=== PATIENT | female | born 1955 | race Caucasian/White ===

== ENCOUNTER 2017-04-27 15:22 | Outpatient (CLI) | payer MEDICAID ==
[2017-04-27 17:52] LABS: BASOPHILS % (AUTO) 0.4 %; EOSINOPHILS % (AUTO) 1.2 %; HCT - HEMATOCRIT 40.5 % (37.0-47.0); HGB - HEMOGLOBIN 13.5 g/dL (12.0-16.0); LYMPHOCYTES % (AUTO) 55.2 %; MEAN CORPUSCULAR HEMOGLOBIN 28.2 pg (27.0-31.0); MEAN CORPUSCULAR HGB CONC 33.4 g/dL (32.0-36.0); MEAN CORPUSCULAR VOLUME 84.3 fL (81.0-99.0); MEAN PLATELET VOLUME 6.6 fL (7.9-10.8); MONOCYTES % (AUTO) 6.8 %; NEUTROPHILS % (AUTO) 36.4 %; RED BLOOD COUNT 4.81 10^6/uL (4.20-5.40); RED CELL DISTRIBUTION WIDTH 13.4 % (12.0-15.0); UNCORRECTED WHITE BLOOD COUNT 7.2 x10^3/uL; WHITE BLOOD COUNT 7.2 x10^3/uL (4.8-10.8)
[2017-04-27 18:58] LABS: BAND NEUTROPHILS % (MANUAL) 0 %
[2017-04-27 19:01] LABS: BASOPHILS % (MANUAL) 2 %; EOSINOPHILS % (MANUAL) 2 %; LYMPHOCYTES % (MANUAL) 38 %; NEUTROPHILS % (MANUAL) 36 %; PLATELET ESTIMATE, MANUAL NORMAL (130-450,000) (NORMAL); PLATELET MORPHOLOGY NORMAL APPEARANCE (NORMAL); TOTAL CELLS COUNTED 100
[2017-04-27 19:02] LABS: NP AUTO DIFFERENTIAL? YES; NP MAN DIFFERENTIAL? NO
[2017-04-27 19:07] LABS: ALBUMIN/GLOBULIN RATIO 1.3 (1.0-2.2); BILIRUBIN,TOTAL 0.4 mg/dL (0.2-1.0); CALCIUM 9.2 mg/dL (8.5-10.3); POTASSIUM 3.7 mmol/L (3.5-5.0); TOTAL PROTEIN 7.4 g/dL (6.7-8.2)
== END 2017-04-27 15:23 | disposition home or self-care (01) ==
LOC: LAB.F 15:22
PROVIDERS: ATTEND Physician Assistant Medical
DX: Z51.81 Encounter for therapeutic drug level monitoring (principal); Z79.899 Other long term (current) drug therapy
CPT/HCPCS: 36415; 80053; 85025

== ENCOUNTER 2018-04-23 11:31 | Emergency (ER) | payer MEDICARE, MEDICAID ==
[2018-04-23] MEDS ORDERED: KETAMINE 500 MG/10 ML VIAL ONE (12:25)
[2018-04-23 13:41] LABS: BASOPHILS % (AUTO) 0.2 %; EOSINOPHILS % (AUTO) 1.7 %; HGB - HEMOGLOBIN 12.5 g/dL (12.0-16.0); LYMPHOCYTES % (AUTO) 55.5 %; MEAN CORPUSCULAR HEMOGLOBIN 29.7 pg (27.0-31.0); MEAN CORPUSCULAR HGB CONC 34.6 g/dL (32.0-36.0); MEAN CORPUSCULAR VOLUME 85.7 fL (81.0-99.0); MONOCYTES % (AUTO) 7.6 %; PLT - PLATELET COUNT 350 10^3/uL (130-450); RED CELL DISTRIBUTION WIDTH 14.4 % (12.0-15.0); WHITE BLOOD COUNT 5.5 x10^3/uL (4.8-10.8)
[2018-04-23 13:43] LABS: ABNORMAL LYMPHS % (MANUAL) 0 %; BAND NEUTROPHILS % (MANUAL) 0 %
[2018-04-23 13:53] LABS: ALBUMIN 3.9 g/dL (3.2-5.5); ALBUMIN/GLOBULIN RATIO 1.2 (1.0-2.2); ALKALINE PHOSPHATASE 79 IU/L (42-121); ALT ALANINE AMINOTRANSFERASE 29 IU/L (10-60); AST ASPARTATE AMINOTRANSFERASE 31 IU/L (10-42); BILIRUBIN,TOTAL 0.3 mg/dL (0.2-1.0); BUN - BLOOD UREA NITROGEN 12 mg/dL (6-20); CALCIUM 9.1 mg/dL (8.5-10.3); CARBON DIOXIDE - CO2 28 mmol/L (21-32); CHLORIDE 99 mmol/L (101-111); CREATININE 0.9 mg/dL (0.4-1.0); GFR - MDRD 64 (>89); GLUCOSE 91 mg/dL (70-100); LIPASE 43 U/L (22-51); SALICYLATE < 6.0 mg/dL; SODIUM 136 mmol/L (135-145); TOTAL PROTEIN 7.2 g/dL (6.7-8.2)
[2018-04-23 14:03] LABS: BASOPHILS # (MANUAL) 0.1 10^3/uL (0-0.1); BASOPHILS % (MANUAL) 1 %; EOSINOPHILS # (MANUAL) 0.2 10^3/uL (0-0.7); LYMPHOCYTES # (MANUAL) 3.5 10^3/uL (1.5-3.5); LYMPHOCYTES % (MANUAL) 50 %; MONOCYTES # (MANUAL) 0.3 10^3/uL (0.0-1.0); MYELOCYTES % (MANUAL) 1 %; NEUTROPHILS # (MANUAL) 1.5 10^3/uL (1.5-6.6); NEUTROPHILS % (MANUAL) 27 %
[2018-04-23 14:04] LABS: DIFFERENTIAL COMMENT MANUAL DIFFERENTIAL
[2018-04-23 14:13] LABS: ACETAMINOPHEN < 10 ug/mL (10-30)
[2018-04-23 15:42] LABS: MUDS CUTOFF CONCENTRATIONS CUTOFF CONC BELOW:
[2018-04-23 15:46] LABS: BILIRUBIN,URINE NEGATIVE (NEGATIVE); GLUCOSE, URINE (UA) NEGATIVE (NEGATIVE); KETONES,URINE (UA) NEGATIVE (NEGATIVE); LEUKOCYTE ESTERASE, URINE NEGATIVE (NEGATIVE); NITRITE,URINE NEGATIVE (NEGATIVE); OCCULT BLOOD,URINE TRACE-LYSE (NEGATIVE); PROTEIN,URINE NEGATIVE (NEGATIVE); UROBILINOGEN,URINE 0.2 (NORMAL) E.U./dL (NORMAL)
[2018-04-23 16:03] LABS: AMPHETAMINE SCREEN,URINE NEGATIVE (NEGATIVE); BENZODIAZEPINES SCREEN, URINE NEGATIVE (NEGATIVE); CLARITY,URINE CLEAR (CLEAR); COCAINE SCREEN URINE NEGATIVE (NEGATIVE); METHADONE SCREEN, URINE NEGATIVE (NEGATIVE); METHAMPHETAMINES SCREEN, URINE NEGATIVE (NEGATIVE); OPIATE SCREEN, URINE NEGATIVE (NEGATIVE); OXYCODONE SCREEN, URINE POSITIVE (NEGATIVE); PROPOXYPHENE SCREEN, URINE NEGATIVE (NEGATIVE); TRICYCLIC ANTIDEPRESSANT,URINE NEGATIVE (NEGATIVE)
--- NOTE | 2018-04-23 16:07 | ED Physician Documentation ---
History of Present Illness - Stated complaint Stated Complaint: SI - Chief complaint Chief Complaint: MHE - Additonal information Additional information: pt brought in by her [facility] counselor states she is depressed and wants to due because she is overwhelmed by everything tried to kill herself with OD on klonopin and oxycodone (20 each) 3 days ago no other self harm denies fever, + cough, no NVD per triage pt has a bed an inpt mental health bed reserved and just needs med clearance Review of Systems Constitutional: denies: Fever, Chills Cardiac: denies: Chest pain / pressure Respiratory: denies: Dyspnea GI: denies: Abdominal Pain, Nausea, Vomiting : denies: Dysuria Neurologic: denies: Generalized weakness Psychiatric: reports: Depressed, Suicidal PD PAST MEDICAL HISTORY - Past Medical History Past Medical History: Yes Cardiovascular: None Respiratory: None Endocrine/Autoimmune: None GI: GERD, Ulcers : None Psych: Bipolar disorder Musculoskeletal: Osteoarthritis, Chronic back pain Derm: None - Past Surgical History Past Surgical History: Yes - Present Medications Home Medications: Ambulatory Orders Medication Instructions Recorded Confirmed Hydroxyzine Pamoate [Vistaril] 50 mg PO DAILY 12/19/14 12/19/14 Omeprazole 40 mg PO DAILY 12/19/14 12/19/14 Risperidone [Risperidone M-Tab] 2 mg PO BID 12/19/14 12/19/14 clonazePAM [Klonopin] 1 mg PO DAILY 12/19/14 12/19/14 oxyCODONE/ACET 5/325 [Percocet 5 1 tab DAILY 02/02/16 02/02/16 mg/325 mg] - Allergies Allergies/Adverse Reactions: Allergies Allergy/AdvReac Type Severity Reaction Status Date / Time haloperidol [From Haldol] Allergy Rash Verified 04/23/18 12:09 haloperidol lactate * Allergy Rash Verified 04/23/18 12:09 [From Haldol] Sulfa (Sulfonamide Allergy Rash Verified 04/23/18 12:09 Antibiotics) - Social History Does the pt smoke?: No Smoking Status: Never smoker Does the pt drink ETOH?: No Does the pt have substance abuse?: No PD ED PE NORMAL - Vitals Vital signs reviewed: Yes - Neck Neck: Supple, no meningeal sign - Cardiac Cardiac: RRR - Respiratory Respiratory: No respiratory distress - Abdomen Abdomen: Soft, Non tender - Neuro Neuro: Alert and oriented X 3 - Psych Psych: Other (tearful) Results - Vitals Vitals: Vital Signs - 24 hr 04/23/18 12:01 Temperature 35.6 C L Heart Rate 101 H Respiratory 16 Rate Blood Pressure 125/82 H O2 Saturation 98 Oxygen O2 Source Room air - EKG (time done) 1520 Rate: Rate (enter#) (67) Rhythm: NSR [place]: Normal Intervals: Prolonged MD, QRS normal. No: Prolonged QT Ischemia: Non specific changes - Labs Labs: Laboratory Tests 04/23/18 04/23/18 04/23/18 13:25 13:25 13:25 WBC 5.5 RBC 4.20 Hgb 12.5 Hct 36.0 L MCV 85.7 MCH 29.7 MCHC 34.6 RDW 14.4 Plt Count 350 MPV 6.0 L Neut # (Auto) Not Reportable Lymph # (Auto) Not Reportable [place] # (Auto) Not Reportable Eos # (Auto) Not Reportable Baso # (Auto) Not Reportable Absolute Nucleated RBC Not Reportable Total Counted 100 Band Neuts % (Manual) 0 Reactive Lymphs % (Man) 13 Abnorm Lymph % (Manual) 0 Myelocytes % 1 H Nucleated RBC % Not Reportable Neutrophils # (Manual) 1.5 Lymphocytes # (Manual) 3.5 Monocytes # (Manual) 0.3 Eosinophils # (Manual) 0.2 Basophils # (Manual) 0.1 Differential Comment MANUAL DIFFERENTIAL Sodium 136 Potassium 4.0 Chloride 99 L Carbon Dioxide 28 Anion Gap 9.0 BUN 12 Creatinine 0.9 Estimated GFR (MDRD) 64 L Glucose 91 Calcium 9.1 Total Bilirubin 0.3 AST 31 ALT 29 Alkaline Phosphatase 79 Total Protein 7.2 Albumin 3.9 Globulin 3.3 Albumin/Globulin Ratio 1.2 Lipase 43 TSH 1.66 Urine Color Urine Clarity Urine pH Ur Specific [place] Urine Protein Urine Glucose (UA) Urine Ketones Urine Occult Blood Urine Nitrite Urine Bilirubin Urine Urobilinogen Ur Leukocyte Esterase Ur Microscopic Review Urine Culture Comments Salicylates < 6.0 Urine Opiates Screen Ur Oxycodone Screen Urine Methadone Screen Ur Propoxyphene Screen Acetaminophen < 10 L Ur Barbiturates Screen Ur Tricyclics Screen Ur Phencyclidine Scrn Ur Amphetamine Screen U Methamphetamines Scrn U Benzodiazepines Scrn Urine Cocaine Screen U Cannabinoids Screen Ethyl Alcohol < 5.0 04/23/18 15:30 WBC RBC Hgb Hct MCV MCH MCHC RDW Plt Count MPV Neut # (Auto) Lymph # (Auto) [place] # (Auto) Eos # (Auto) Baso # (Auto) Absolute Nucleated RBC Total Counted Band Neuts % (Manual) Reactive Lymphs % (Man) Abnorm Lymph % (Manual) Myelocytes % Nucleated RBC % Neutrophils # (Manual) Lymphocytes # (Manual) Monocytes # (Manual) Eosinophils # (Manual) Basophils # (Manual) Differential Comment Sodium Potassium Chloride Carbon Dioxide Anion Gap BUN Creatinine Estimated GFR (MDRD) Glucose Calcium Total Bilirubin AST ALT Alkaline Phosphatase Total Protein Albumin Globulin Albumin/Globulin Ratio Lipase TSH Urine Color YELLOW Urine Clarity CLEAR Urine pH 6.0 Ur Specific [place] 1.010 Urine Protein NEGATIVE Urine Glucose (UA) NEGATIVE Urine Ketones NEGATIVE Urine Occult Blood TRACE-LYSE Urine Nitrite NEGATIVE Urine Bilirubin NEGATIVE Urine Urobilinogen 0.2 (NORMAL) Ur Leukocyte Esterase NEGATIVE Ur Microscopic Review NOT INDICATED Urine Culture Comments NOT INDICATED Salicylates Urine Opiates Screen NEGATIVE Ur Oxycodone Screen POSITIVE H Urine Methadone Screen NEGATIVE Ur Propoxyphene Screen NEGATIVE Acetaminophen Ur Barbiturates Screen NEGATIVE Ur Tricyclics Screen NEGATIVE Ur Phencyclidine Scrn NEGATIVE Ur Amphetamine Screen NEGATIVE U Methamphetamines Scrn NEGATIVE U Benzodiazepines Scrn NEGATIVE Urine Cocaine Screen NEGATIVE U Cannabinoids Screen NEGATIVE Ethyl Alcohol PD MEDICAL DECISION MAKING - ED course ED course: pt medically clear has cough but lungs clear and afebrile OD does not seem to have caused harm EKG non specific one myleocyte on diff merits outpt wup but not preclude inpt mental health pt is still depressed and suicidal and merits inpt care she is voluntary accepted at [facility] completed turned over to next shift pending transport team - Sepsis Event Vital Signs: Vital Signs - 24 hr 04/23/18 12:01 Temperature 35.6 C L Heart Rate 101 H Respiratory 16 Rate Blood Pressure 125/82 H O2 Saturation 98 Oxygen O2 Source Room air Departure - Departure Disposition: 65 Psych Hosp/Unit DC/Xfer Clinical Impression: Medication overdose Qualifiers: Encounter type: initial encounter Injury intent: intentional self-harm Qualified Code(s): T50.902A - Poisoning by unspecified drugs, medicaments and biological substances, intentional self-harm, initial encounter Depression Qualifiers: Depression Type: unspecified Qualified Code(s): F32.9 - Major depressive disorder, single episode, unspecified Condition: Fair
[2018-04-23] MEDS ORDERED: hydrOXYzine PAMOATE 25 MG CAPSULE PO STA (16:38)
[2018-04-23 20:01] VITALS: BP 148/96
== END 2018-04-23 20:05 ==
LOC: ED 11:31
DX: T42.4X2A Poisoning by benzodiazepines, intentional self-harm, initial encounter (principal); T40.2X2A Poisoning by other opioids, intentional self-harm, initial encounter; F32.9 Major depressive disorder, single episode, unspecified; R94.31 Abnormal electrocardiogram [ECG] [EKG]
CPT/HCPCS: 36415; 80053; 81003; 83690; 84443; 85025; 93005; 99284; A9270; 80306; 80307; 80320; 80329; 81001; 87086; 99283

== ENCOUNTER 2020-03-20 09:08 | Outpatient (CLI) | payer MEDICARE, MEDICAID | END 2020-03-20 09:09 | disposition home or self-care (01) | LOC: LAB.S 09:08 | PROVIDERS: ATTEND Registered Nurse | DX: Z53.9 Procedure and treatment not carried out, unspecified reason (principal) | CPT/HCPCS: 36415; 80053; 80061; 83721; 84443; 85025 ==

== ENCOUNTER 2020-04-10 11:18 | Outpatient (CLI) | payer MEDICARE, MEDICAID | END 2020-04-10 11:19 | disposition critical access hospital (66) | LOC: EMS 11:18 | PROVIDERS: ATTEND Surgery | DX: R46.89 Other symptoms and signs involving appearance and behavior (principal); R41.0 Disorientation, unspecified | CPT/HCPCS: A0425; A0429 ==

== ENCOUNTER 2020-04-10 11:48 | Emergency (ER) | payer MEDICARE, MEDICAID ==
[2020-04-10] MEDS ORDERED: HALOPERIDOL 5 MG/ML VIAL IM STA (11:57)
[2020-04-10] MEDS ORDERED: SODIUM CHLORIDE 0.9% 1,000 ML IV STA (11:58)
[2020-04-10] MEDS ORDERED: KETAMINE 500 MG/10 ML VIAL IM STA (12:23)
[2020-04-10 13:07] LABS: BASOPHILS # (AUTO) 0.1 10^3/uL (0.0-0.1); BASOPHILS % (AUTO) 0.6 %; EOSINOPHILS # (AUTO) 0.2 10^3/uL (0.0-0.7); EOSINOPHILS % (AUTO) 1.8 %; HGB - HEMOGLOBIN 11.7 g/dL (12.0-16.0); LYMPHOCYTES # (AUTO) 2.9 10^3/uL (1.5-3.5); LYMPHOCYTES % (AUTO) 34.8 %; MEAN CORPUSCULAR HEMOGLOBIN 27.9 pg (27.0-31.0); MEAN CORPUSCULAR VOLUME 84.7 fL (81.0-99.0); MEAN PLATELET VOLUME 8.6 fL (7.9-10.8); MONOCYTES # (AUTO) 0.9 10^3/uL (0.0-1.0); MONOCYTES % (AUTO) 10.9 %; NEUTROPHILS # (AUTO) 4.3 10^3/uL (1.5-6.6); NEUTROPHILS % (AUTO) 51.5 %; PLT - PLATELET COUNT 433 10^3/uL (130-450); RED BLOOD COUNT 4.19 10^6/uL (4.20-5.40); RED CELL DISTRIBUTION WIDTH 13.9 % (12.0-15.0); WHITE BLOOD COUNT 8.4 x10^3/uL (4.8-10.8)
[2020-04-10 13:13] LABS: MUDS CUTOFF CONCENTRATIONS CUTOFF CONC BELOW:
[2020-04-10 13:15] LABS: BILIRUBIN,URINE NEGATIVE (NEGATIVE); GLUCOSE, URINE (UA) NEGATIVE (NEGATIVE); KETONES,URINE (UA) TRACE mg/dL (NEGATIVE); LEUKOCYTE ESTERASE, URINE NEGATIVE (NEGATIVE); NITRITE,URINE NEGATIVE (NEGATIVE); OCCULT BLOOD,URINE NEGATIVE (NEGATIVE); PROTEIN,URINE NEGATIVE (NEGATIVE); UROBILINOGEN,URINE 0.2 (NORMAL) E.U./dL (NORMAL)
[2020-04-10 13:18] LABS: CLARITY,URINE CLEAR (CLEAR)
[2020-04-10 13:23] LABS: ACETAMINOPHEN < 10 ug/mL (10-30); ALBUMIN 4.2 g/dL (3.2-5.5); ALBUMIN/GLOBULIN RATIO 1.4 (1.0-2.2); ALKALINE PHOSPHATASE 85 IU/L (42-121); ALT ALANINE AMINOTRANSFERASE 69 IU/L (10-60); AST ASPARTATE AMINOTRANSFERASE 76 IU/L (10-42); BILIRUBIN,TOTAL 1.1 mg/dL (0.2-1.0); BUN - BLOOD UREA NITROGEN 9 mg/dL (6-20); CALCIUM 8.8 mg/dL (8.5-10.3); CARBON DIOXIDE - CO2 23 mmol/L (21-32); CHLORIDE 99 mmol/L (101-111); CREATININE 0.9 mg/dL (0.4-1.0); GLUCOSE 96 mg/dL (70-100); LIPASE 30 U/L (22-51); SALICYLATE < 6.0 mg/dL; SODIUM 136 mmol/L (135-145); TOTAL PROTEIN 7.2 g/dL (6.7-8.2)
[2020-04-10 13:28] LABS: AMPHETAMINE SCREEN,URINE NEGATIVE (NEGATIVE); BENZODIAZEPINES SCREEN, URINE NEGATIVE (NEGATIVE); COCAINE SCREEN URINE NEGATIVE (NEGATIVE); METHADONE SCREEN, URINE NEGATIVE (NEGATIVE); METHAMPHETAMINES SCREEN, URINE NEGATIVE (NEGATIVE); OPIATE SCREEN, URINE NEGATIVE (NEGATIVE); OXYCODONE SCREEN, URINE NEGATIVE (NEGATIVE); PROPOXYPHENE SCREEN, URINE NEGATIVE (NEGATIVE); TRICYCLIC ANTIDEPRESSANT,URINE NEGATIVE (NEGATIVE)
[2020-04-10] MEDS ORDERED: LACTATED RINGERS 1,000 ML IV STA (14:59)
[2020-04-10] MEDS ORDERED: LORazepam 2 MG/ML VIAL IVP STA (14:59)
[2020-04-10] MEDS ORDERED: METOPROLOL 5 MG/5 ML VIAL IVP STA (16:32)
[2020-04-10] MEDS ORDERED: MAGNESIUM SULFATE 2 GRAM 2 GM/50 ML BAG IV ONE (16:32)
[2020-04-10] MEDS ORDERED: POTASSIUM CHLOR 10 MEQ/100 ML 10 MEQ/100 ML BAG IV ONE (16:32)
--- NOTE | 2020-04-10 17:49 | ED Physician Documentation ---
PD HPI MHE - Stated complaint Stated Complaint: MHE - Chief complaint Chief Complaint: MHE - History obtained from History obtained from: Patient, EMS - History of Present Illness Primary symptom: Psychosis, Aggressive behavior, Off meds (for past few days), Other (The patient reportedly lives in a community house and is new to it. Her behavior reportedly became more unfocused and agitated overnight and this morning she was yelling and screaming and throwing objects around the house. EMS called. Needed restraining as too unfocused and aggressive/anxious.) Contributing factors: No: Substance abuse - ETOH, Substance abuse - drugs Similar symptoms before: Diagnosis (reportedly history of psych process and is Rx meds. Reportedly has not been taking them the past few days) Review of Systems Unable to obtain: Uncooperative, Other (agitated and will not answer questions. Just yelling to be let go. Replies to ROS questions intermittently.) Constitutional: denies: Fever Cardiac: denies: Chest pain / pressure Respiratory: denies: Cough GI: denies: Abdominal Pain, Vomiting Neurologic: denies: Focal weakness, Headache, Head injury PD PAST MEDICAL HISTORY - Past Medical History Cardiovascular: None Respiratory: None Endocrine/Autoimmune: None GI: GERD, Ulcers : None Psych: Bipolar disorder Musculoskeletal: Osteoarthritis, Chronic back pain Derm: None - Past Surgical History Past Surgical History: Yes - Present Medications Home Medications: Ambulatory Orders Medication Instructions Recorded Confirmed hydrOXYzine pamoate [Vistaril] 25 mg PO BID 12/19/14 04/10/20 Lurasidone HCl [Latuda] 60 mg PO DAILY PM 04/10/20 04/10/20 cloNIDine [Catapres] 0.2 mg PO DAILY PM 04/10/20 04/10/20 - Allergies Allergies/Adverse Reactions: Allergies Allergy/AdvReac Type Severity Reaction Status Date / Time haloperidol [From Haldol] Allergy Rash Verified 04/10/20 12:06 haloperidol lactate * Allergy Rash Verified 04/10/20 12:06 [From Haldol] Sulfa (Sulfonamide Allergy Rash Verified 04/10/20 12:06 Antibiotics) - Social History Does the pt smoke?: No Smoking Status: Never smoker Does the pt drink ETOH?: No Does the pt have substance abuse?: No PD ED PE NORMAL - Vitals Vital signs reviewed: Yes - General General: Well developed/nourished, Other (Awake and conversant and yelling and pulling at restraints. She is not following commands and seems unfocused at receiving questions except occasionally she will pay attention and answer caution limitedly. She then goes back to repeated screaming of asking to be let go) - HEENT HEENT: Atraumatic - Neck Neck: Supple, no meningeal sign, No adenopathy - Cardiac Cardiac: RRR, No murmur - Respiratory Respiratory: Clear bilaterally - Abdomen Abdomen: Soft, Non tender, Non distended - Derm Derm: Normal color, Warm and dry - Extremities Extremities: Normal ROM s pain, No edema, No calf tenderness / cord - Neuro Neuro: No motor deficit, No sensory deficit, Normal speech Eye Opening: Spontaneous Motor: Withdraws to Pain (spontaneous movement and coordinated, but not following commands directly, too unfocused.) - Psych Psych: No: Normal affect (She is very anxious and unable to follow commands or really state her current feelings or problems. She is not seem able to care for herself.) Results - Vitals Vitals: Vital Signs - 24 hr 04/10/20 04/10/20 04/10/20 11:48 12:00 12:30 Temperature 37.4 C Heart Rate 98 90 86 Respiratory 20 18 16 Rate Blood Pressure 170/106 H 120/74 104/60 O2 Saturation 99 97 98 04/10/20 04/10/20 04/10/20 13:00 13:30 14:00 Temperature Heart Rate 85 82 86 Respiratory 17 16 15 Rate Blood Pressure 150/79 H 144/89 H 180/87 H O2 Saturation 96 98 99 04/10/20 04/10/20 04/10/20 15:52 16:00 16:30 Temperature Heart Rate 67 87 70 Respiratory 24 19 19 Rate Blood Pressure 118/64 155/72 H 150/68 H O2 Saturation 96 98 99 Oxygen O2 Source Room air - Labs Labs: Laboratory Tests 04/10/20 04/10/20 04/10/20 12:49 12:49 12:49 WBC 8.4 RBC 4.19 L Hgb 11.7 L Hct 35.5 L MCV 84.7 MCH 27.9 MCHC 33.0 RDW 13.9 Plt Count 433 MPV 8.6 Neut # (Auto) 4.3 Lymph # (Auto) 2.9 [place] # (Auto) 0.9 Eos # (Auto) 0.2 Baso # (Auto) 0.1 Absolute Nucleated RBC 0.00 Nucleated RBC % 0.0 Sodium 136 Potassium 3.0 L Chloride 99 L Carbon Dioxide 23 Anion Gap 14.0 H BUN 9 Creatinine 0.9 Estimated GFR (MDRD) 63 L Glucose 96 Calcium 8.8 Total Bilirubin 1.1 H AST 76 H ALT 69 H Alkaline Phosphatase 85 Total Protein 7.2 Albumin 4.2 Globulin 3.0 Albumin/Globulin Ratio 1.4 Lipase 30 TSH 0.99 Urine Color Urine Clarity Urine pH Ur Specific [place] Urine Protein Urine Glucose (UA) Urine Ketones Urine Occult Blood Urine Nitrite Urine Bilirubin Urine Urobilinogen Ur Leukocyte Esterase Ur Microscopic Review Urine Culture Comments Salicylates < 6.0 Urine Opiates Screen Ur Oxycodone Screen Urine Methadone Screen Ur Propoxyphene Screen Acetaminophen < 10 L Ur Barbiturates Screen Ur Tricyclics Screen Ur Phencyclidine Scrn Ur Amphetamine Screen U Methamphetamines Scrn U Benzodiazepines Scrn Urine Cocaine Screen U Cannabinoids Screen Ethyl Alcohol < 5.0 04/10/20 13:00 WBC RBC Hgb Hct MCV MCH MCHC RDW Plt Count MPV Neut # (Auto) Lymph # (Auto) [place] # (Auto) Eos # (Auto) Baso # (Auto) Absolute Nucleated RBC Nucleated RBC % Sodium Potassium Chloride Carbon Dioxide Anion Gap BUN Creatinine Estimated GFR (MDRD) Glucose Calcium Total Bilirubin AST ALT Alkaline Phosphatase Total Protein Albumin Globulin Albumin/Globulin Ratio Lipase TSH Urine Color LT. YELLOW Urine Clarity CLEAR Urine pH 6.0 Ur Specific [place] 1.020 Urine Protein NEGATIVE Urine Glucose (UA) NEGATIVE Urine Ketones TRACE Urine Occult Blood NEGATIVE Urine Nitrite NEGATIVE Urine Bilirubin NEGATIVE Urine Urobilinogen 0.2 (NORMAL) Ur Leukocyte Esterase NEGATIVE Ur Microscopic Review NOT INDICATED Urine Culture Comments NOT INDICATED Salicylates Urine Opiates Screen NEGATIVE Ur Oxycodone Screen NEGATIVE Urine Methadone Screen NEGATIVE Ur Propoxyphene Screen NEGATIVE Acetaminophen Ur Barbiturates Screen NEGATIVE Ur Tricyclics Screen NEGATIVE Ur Phencyclidine Scrn NEGATIVE Ur Amphetamine Screen NEGATIVE U Methamphetamines Scrn NEGATIVE U Benzodiazepines Scrn NEGATIVE Urine Cocaine Screen NEGATIVE U Cannabinoids Screen NEGATIVE Ethyl Alcohol PD MEDICAL DECISION MAKING - ED course Complexity details: considered differential (The patient patient is very manic acting with unfocused attention and inability to really care for self and had been throwing objects around the house where she is staying.), d/w patient ED course: DCR coming in to see the patient due to degree of dysfunction and manic behavior. Departure - Departure Clinical Impression: Agitation, Acute exacerbation of psychosis Condition: Stable Record reviewed to determine appropriate education?: Yes
[2020-04-10] MEDS ORDERED: LORazepam 2 MG/ML VIAL IM STA (21:16)
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
--- NOTE | 2020-04-11 | ED Physician Documentation ---
PD HPI MHE - Stated complaint Stated Complaint: MHE - Chief complaint Chief Complaint: MHE PD PAST MEDICAL HISTORY - Past Medical History Cardiovascular: None Respiratory: None Endocrine/Autoimmune: None GI: GERD, Ulcers : None Psych: Bipolar disorder Musculoskeletal: Osteoarthritis, Chronic back pain Derm: None - Past Surgical History Past Surgical History: Yes - Present Medications Home Medications: Ambulatory Orders Medication Instructions Recorded Confirmed hydrOXYzine pamoate [Vistaril] 25 mg PO BID 12/19/14 04/10/20 Lurasidone HCl [Latuda] 60 mg PO DAILY PM 04/10/20 04/10/20 cloNIDine [Catapres] 0.2 mg PO DAILY PM 04/10/20 04/10/20 - Allergies Allergies/Adverse Reactions: Allergies Allergy/AdvReac Type Severity Reaction Status Date / Time haloperidol [From Haldol] Allergy Rash Verified 04/10/20 12:06 haloperidol lactate * Allergy Rash Verified 04/10/20 12:06 [From Haldol] Sulfa (Sulfonamide Allergy Rash Verified 04/10/20 12:06 Antibiotics) - Social History Does the pt smoke?: No Smoking Status: Never smoker Does the pt drink ETOH?: No Does the pt have substance abuse?: No Results - Vitals Vitals: Vital Signs - 24 hr 04/10/20 04/10/20 04/10/20 11:48 12:00 12:30 Temperature 37.4 C Heart Rate 98 90 86 Respiratory 20 18 16 Rate Blood Pressure 170/106 H 120/74 104/60 O2 Saturation 99 97 98 04/10/20 04/10/20 04/10/20 13:00 13:30 14:00 Temperature Heart Rate 85 82 86 Respiratory 17 16 15 Rate Blood Pressure 150/79 H 144/89 H 180/87 H O2 Saturation 96 98 99 04/10/20 04/10/20 04/10/20 15:52 16:00 16:30 Temperature Heart Rate 67 87 70 Respiratory 24 19 19 Rate Blood Pressure 118/64 155/72 H 150/68 H O2 Saturation 96 98 99 04/10/20 04/10/20 04/10/20 22:30 23:21 23:58 Temperature Heart Rate 83 76 86 Respiratory 18 16 18 Rate Blood Pressure 130/72 140/69 H 147/81 H O2 Saturation 95 100 98 04/11/20 04/11/20 04/11/20 01:40 03:04 06:00 Temperature Heart Rate 77 80 81 Respiratory 18 18 18 Rate Blood Pressure 156/84 H 139/57 H 150/71 H O2 Saturation 96 99 99 Oxygen O2 Source Room air - EKG (time done) 2350 Rate: Rate (enter#) (80) Rhythm: [place]E [place]: RAD (borderline) Ischemia: Q waves Compare to prior EKG: Unchanged from prior EKG (SPT 04-23-2018 no significant changes) Computer interpretation: Agree with computer 0447 Rhythm: NSR Ischemia: Q waves Compare to prior EKG: Changed from prior EKG (SPT 04-10-2020 the QTc has decreased from 494 to 475) Computer interpretation: Agree with computer - Labs Labs: Laboratory Tests 04/10/20 04/10/20 04/10/20 12:49 12:49 12:49 WBC 8.4 RBC 4.19 L Hgb 11.7 L Hct 35.5 L MCV 84.7 MCH 27.9 MCHC 33.0 RDW 13.9 Plt Count 433 MPV 8.6 Neut # (Auto) 4.3 Lymph # (Auto) 2.9 [place] # (Auto) 0.9 Eos # (Auto) 0.2 Baso # (Auto) 0.1 Absolute Nucleated RBC 0.00 Nucleated RBC % 0.0 Sodium 136 Potassium 3.0 L Chloride 99 L Carbon Dioxide 23 Anion Gap 14.0 H BUN 9 Creatinine 0.9 Estimated GFR (MDRD) 63 L Glucose 96 Calcium 8.8 Total Bilirubin 1.1 H AST 76 H ALT 69 H Alkaline Phosphatase 85 Total Protein 7.2 Albumin 4.2 Globulin 3.0 Albumin/Globulin Ratio 1.4 Lipase 30 TSH 0.99 Urine Color Urine Clarity Urine pH Ur Specific [place] Urine Protein Urine Glucose (UA) Urine Ketones Urine Occult Blood Urine Nitrite Urine Bilirubin Urine Urobilinogen Ur Leukocyte Esterase Ur Microscopic Review Urine Culture Comments Salicylates < 6.0 Urine Opiates Screen Ur Oxycodone Screen Urine Methadone Screen Ur Propoxyphene Screen Acetaminophen < 10 L Ur Barbiturates Screen Ur Tricyclics Screen Ur Phencyclidine Scrn Ur Amphetamine Screen U Methamphetamines Scrn U Benzodiazepines Scrn Urine Cocaine Screen U Cannabinoids Screen Ethyl Alcohol < 5.0 04/10/20 13:00 WBC RBC Hgb Hct MCV MCH MCHC RDW Plt Count MPV Neut # (Auto) Lymph # (Auto) [place] # (Auto) Eos # (Auto) Baso # (Auto) Absolute Nucleated RBC Nucleated RBC % Sodium Potassium Chloride Carbon Dioxide Anion Gap BUN Creatinine Estimated GFR (MDRD) Glucose Calcium Total Bilirubin AST ALT Alkaline Phosphatase Total Protein Albumin Globulin Albumin/Globulin Ratio Lipase TSH Urine Color LT. YELLOW Urine Clarity CLEAR Urine pH 6.0 Ur Specific [place] 1.020 Urine Protein NEGATIVE Urine Glucose (UA) NEGATIVE Urine Ketones TRACE Urine Occult Blood NEGATIVE Urine Nitrite NEGATIVE Urine Bilirubin NEGATIVE Urine Urobilinogen 0.2 (NORMAL) Ur Leukocyte Esterase NEGATIVE Ur Microscopic Review NOT INDICATED Urine Culture Comments NOT INDICATED Salicylates Urine Opiates Screen NEGATIVE Ur Oxycodone Screen NEGATIVE Urine Methadone Screen NEGATIVE Ur Propoxyphene Screen NEGATIVE Acetaminophen Ur Barbiturates Screen NEGATIVE Ur Tricyclics Screen NEGATIVE Ur Phencyclidine Scrn NEGATIVE Ur Amphetamine Screen NEGATIVE U Methamphetamines Scrn NEGATIVE U Benzodiazepines Scrn NEGATIVE Urine Cocaine Screen NEGATIVE U Cannabinoids Screen NEGATIVE Ethyl Alcohol PD MEDICAL DECISION MAKING - ED course Complexity details: reviewed old records, reviewed results, re-evaluated patient, considered differential, d/w patient ED course: 64-year-old female with acute psychosis has been accepted at [facility] pending reduction in her QTc on her electrocardiogram. Her initial electrocardiogram showed a QTc of 494 and the patient was administered a banana bag and 40 mEq of potassium. Following this her QTc was 475. Departure - Departure Disposition: 65 Psych Hosp/Unit DC/Xfer Clinical Impression: Agitation, Acute exacerbation of psychosis Condition: Stable
[2020-04-11] MEDS ORDERED: FOLIC ACID INJ 1 MG, THIAMINE INJ 100 MG, MAGNESIUM SULFATE 2 GM, MULTIVITAMIN 10 ML in... IV STA ×5 (02:16)
[2020-04-11] MEDS ORDERED: MAGNESIUM SULFATE 1 GM/2 ML VIAL ONE (02:38)
[2020-04-11] MEDS ORDERED: FOLIC ACID 5 MG/1 ML 10ML MDV ONE (02:38)
[2020-04-11] MEDS ORDERED: THIAMINE 100 MG/1 ML 2 ML MDV ONE (02:38)
[2020-04-11] MEDS ORDERED: POTASSIUM CHLORIDE 20 MEQ TABLET PO STA (03:08)
[2020-04-11] MEDS ORDERED: OLANZapine ODT 5 MG TABLET TL ONE (10:04)
[2020-04-11 14:03] VITALS: BP 105/49
== END 2020-04-11 14:13 ==
LOC: EDUNIT# → ED 11:48
DX: F23 Brief psychotic disorder (principal); R45.1 Restlessness and agitation; F31.2 Bipolar disorder, current episode manic severe with psychotic features; Z78.1 Physical restraint status; R94.31 Abnormal electrocardiogram [ECG] [EKG]; Z20.828 Contact with and (suspected) exposure to other viral communicable diseases
CPT/HCPCS: 36415; 80053; 81003; 83690; 84443; 85025; 93005; 96361; 96365; 96367; 96368; 96372; 96375; 99285; A9270; J2060; J3411; J7120; U0004; 80306; 80307; 80320; 80329; 81001; 87086

== ENCOUNTER 2021-02-17 20:52 | Emergency (ER) | payer MEDICARE, MEDICAID | END 2021-02-17 21:11 | disposition left against medical advice (07) | LOC: ED 20:52 | DX: Z53.21 Procedure and treatment not carried out due to patient leaving prior to being seen by health care provider (principal) ==

== ENCOUNTER 2021-03-04 11:06 | Emergency (ER) | payer MEDICARE, MEDICAID | END 2021-03-04 13:39 | disposition left against medical advice (07) | LOC: ED 11:06 | DX: Z53.21 Procedure and treatment not carried out due to patient leaving prior to being seen by health care provider (principal) ==

== ENCOUNTER 2021-03-23 16:02 | Outpatient (CLI) | payer MEDICARE, MEDICAID | END 2021-03-23 16:03 | disposition EMS.NT | LOC: EMS 16:02 | DX: R41.82 Altered mental status, unspecified (principal) ==

== ENCOUNTER 2021-03-26 15:50 | Emergency (ER) | payer MEDICARE, MEDICAID ==
[2021-03-26] MEDS ORDERED: OLANZapine 10 MG VIAL IM STA (16:16)
--- NOTE | 2021-03-26 16:21 | ED Physician Documentation ---
PD HPI MHE - Stated complaint Stated Complaint: MHE - History obtained from History obtained from: Patient, Family - History of Present Illness Primary symptom: Psychosis - Additional information Additional information: 65-year-old female brought into the emergency department by her significant other. He states that for the past month she has not been eating or drinking well. Not sleeping. Has become violent and aggressive over the past several weeks, worsening today. He finally brought her into the emergency department today. Patient is uncooperative and unwilling to give any history. Review of Systems Unable to obtain: Uncooperative PD PAST MEDICAL HISTORY - Past Medical History Past Medical History: Yes Cardiovascular: None Respiratory: None Endocrine/Autoimmune: None GI: GERD, Ulcers : None Psych: Bipolar disorder Musculoskeletal: Osteoarthritis, Chronic back pain Derm: None - Past Surgical History Past Surgical History: Yes - Present Medications Home Medications: Ambulatory Orders Medication Instructions Recorded Confirmed Gabapentin [Neurontin] 300 mg PO TID 03/26/21 03/26/21 Gabapentin [Neurontin] 600 mg PO 03/26/21 03/26/21 OLANZapine [Zyprexa] 15 mg PO DAILY 03/26/21 03/26/21 risperiDONE [Risperdal] 0.5 mg PO BID 03/26/21 03/26/21 - Allergies Allergies/Adverse Reactions: Allergies Allergy/AdvReac Type Severity Reaction Status Date / Time haloperidol [From Haldol] Allergy Rash Verified 03/26/21 16:25 haloperidol lactate * Allergy Rash Verified 03/26/21 16:25 [From Haldol] Sulfa (Sulfonamide Allergy Rash Verified 03/26/21 16:25 Antibiotics) - Social History Does the pt smoke?: No Smoking Status: Never smoker Does the pt drink ETOH?: No Does the pt have substance abuse?: No PD ED PE NORMAL - Vitals Vital signs reviewed: Yes - General General: Other (mumbling, screaming, attempting to kick and hit.) - HEENT HEENT: Atraumatic, PERRL, Moist mucous membranes - Neck Neck: Supple, no meningeal sign - Cardiac Cardiac: RRR - Respiratory Respiratory: No respiratory distress, Clear bilaterally - Abdomen Abdomen: Soft, Non tender, Non distended - Derm Derm: Warm and dry - Extremities Extremities: Other (MAEE) - Neuro Neuro: Other (Aggressive, attempting to bite, hit, kick.) Results - Vitals Vitals: Vital Signs - 24 hr 03/26/21 03/26/21 03/26/21 16:13 16:16 16:31 Temperature 36.4 C L Heart Rate 83 110 H 86 Respiratory 22 Rate Blood Pressure 159/93 H 164/108 H 172/69 H O2 Saturation 100 98 99 03/26/21 03/26/21 03/26/21 16:38 17:01 17:31 Temperature Heart Rate 78 91 87 Respiratory 22 20 Rate Blood Pressure 167/96 H 250/90 H 221/63 H O2 Saturation 99 98 97 03/26/21 03/26/21 03/26/21 18:01 18:52 22:00 Temperature 36.6 C Heart Rate 80 89 83 Respiratory 20 16 16 Rate Blood Pressure 210/78 H 195/72 H 143/69 H O2 Saturation 99 98 95 Oxygen O2 Source Room air - EKG (time done) 1659 Rate: Rate (enter#) (89) Rhythm: NSR [place]: Normal Intervals: Normal [place] QRS: Normal Ischemia: Normal ST segments - Labs Labs: Laboratory Tests 03/26/21 03/26/21 03/26/21 16:52 16:52 16:52 WBC 5.5 RBC 4.15 L Hgb 10.9 L Hct 34.9 L MCV 84.1 MCH 26.3 L MCHC 31.2 L RDW 13.4 Plt Count 359 MPV 8.6 Neut # (Auto) 2.8 Lymph # (Auto) 1.8 [place] # (Auto) 0.7 Eos # (Auto) 0.1 Baso # (Auto) 0.0 Absolute Nucleated RBC 0.00 Nucleated RBC % 0.0 Sodium 141 Potassium 3.3 L Chloride 107 Carbon Dioxide 23 Anion Gap 11.0 BUN 14 Creatinine 0.7 Estimated GFR (MDRD) 85 L Glucose 96 Calcium 9.0 Total Bilirubin 1.0 AST 33 ALT 27 Alkaline Phosphatase 73 Total Protein 7.2 Albumin 4.1 Globulin 3.1 Albumin/Globulin Ratio 1.3 Lipase 31 TSH 1.22 Urine Color Urine Clarity Urine pH Ur Specific [place] Urine Protein Urine Glucose (UA) Urine Ketones Urine Occult Blood Urine Nitrite Urine Bilirubin Urine Urobilinogen Ur Leukocyte Esterase Ur Microscopic Review Urine Culture Comments Nasal Adenovirus (PCR) Nasal B. parapertussis DNA (PCR) Nasal Coronavir 229E PCR Nasal Coronavir HKU1 PCR Nasal Coronavir NL63 PCR Nasal Coronavir OC43 PCR Nasal Enterovir/Rhinovir PCR Nasal Influenza B PCR Nasal Influenza A PCR Nasal Parainfluen 1 PCR Nasal Parainfluen 2 PCR Nasal Parainfluen 3 PCR Nasal Parainfluen 4 PCR Nasal RSV (PCR) Nasal B.pertussis DNA PCR Nasal C.pneumoniae (PCR) Bet[place] Human Metapneumo PCR Nasal M.pneumoniae (PCR) Nasal SARS-CoV-2 (PCR) Salicylates < 6.0 Urine Opiates Screen Ur Oxycodone Screen Urine Methadone Screen Ur Propoxyphene Screen Acetaminophen < 10 L Ur Barbiturates Screen Ur Tricyclics Screen Ur Phencyclidine Scrn Ur Amphetamine Screen U Methamphetamines Scrn U Benzodiazepines Scrn Urine Cocaine Screen U Cannabinoids Screen Ethyl Alcohol < 5.0 03/26/21 03/26/21 17:00 17:02 WBC RBC Hgb Hct MCV MCH MCHC RDW Plt Count MPV Neut # (Auto) Lymph # (Auto) [place] # (Auto) Eos # (Auto) Baso # (Auto) Absolute Nucleated RBC Nucleated RBC % Sodium Potassium Chloride Carbon Dioxide Anion Gap BUN Creatinine Estimated GFR (MDRD) Glucose Calcium Total Bilirubin AST ALT Alkaline Phosphatase Total Protein Albumin Globulin Albumin/Globulin Ratio Lipase TSH Urine Color YELLOW Urine Clarity CLEAR Urine pH 6.0 Ur Specific [place] 1.025 Urine Protein NEGATIVE Urine Glucose (UA) NEGATIVE Urine Ketones 15 H Urine Occult Blood TRACE-INTA Urine Nitrite NEGATIVE Urine Bilirubin NEGATIVE Urine Urobilinogen 2 H Ur Leukocyte Esterase NEGATIVE Ur Microscopic Review NOT INDICATED Urine Culture Comments NOT INDICATED Nasal Adenovirus (PCR) NOT DETECTED Nasal B. parapertussis DNA (PCR) NOT DETECTED Nasal Coronavir 229E PCR NOT DETECTED Nasal Coronavir HKU1 PCR NOT DETECTED Nasal Coronavir NL63 PCR NOT DETECTED Nasal Coronavir OC43 PCR NOT DETECTED Nasal Enterovir/Rhinovir PCR NOT DETECTED Nasal Influenza B PCR NOT DETECTED Nasal Influenza A PCR NOT DETECTED Nasal Parainfluen 1 PCR NOT DETECTED Nasal Parainfluen 2 PCR NOT DETECTED Nasal Parainfluen 3 PCR NOT DETECTED Nasal Parainfluen 4 PCR NOT DETECTED Nasal RSV (PCR) NOT DETECTED Nasal B.pertussis DNA PCR NOT DETECTED Nasal C.pneumoniae (PCR) NOT DETECTED Beto Human Metapneumo PCR NOT DETECTED Nasal M.pneumoniae (PCR) NOT DETECTED Nasal SARS-CoV-2 (PCR) NOT DETECTED Salicylates Urine Opiates Screen NEGATIVE Ur Oxycodone Screen NEGATIVE Urine Methadone Screen NEGATIVE Ur Propoxyphene Screen NEGATIVE Acetaminophen Ur Barbiturates Screen NEGATIVE Ur Tricyclics Screen NEGATIVE Ur Phencyclidine Scrn NEGATIVE Ur Amphetamine Screen NEGATIVE U Methamphetamines Scrn NEGATIVE U Benzodiazepines Scrn NEGATIVE Urine Cocaine Screen NEGATIVE U Cannabinoids Screen POSITIVE H Ethyl Alcohol PD MEDICAL DECISION MAKING - ED course Complexity details: reviewed old records, reviewed results, re-evaluated patient, considered differential, d/w family ED course: Patient is initially was completely uncooperative with any sort of exam. She was placed into restraints as she was attempting to strike staff and screaming. She was throwing punches and kicking. She was given Zyprexa and ketamine. The ketamine was utilized to allow us to draw blood and collect bodily fluids for medical clearance. Patient was also given a dose of intramuscular Ativan. The restraints were able to be removed at approximately 8 PM. DCR was consulted and is looking for a bed. The patient will be signed out to the oncoming emergency department physician awaiting final disposition. Patient is medically clear for psychiatric care. This document was made in part using voice recognition software. While efforts are made to proofread this document, sound alike and grammatical errors may occur. Departure - Departure Clinical Impression: Agitation, Acute exacerbation of psychosis Condition: Stable
--- NOTE | 2021-03-26 16:27 | ED Physician Documentation ---
Face to Face for Restraints - Immediate Situation Face to Face Evaluation Date: 03/26/21 Face to Face Evaluation Time: 16:20 Restraint Situation: Locking, Chemical Patient's Reactions to the Intervention: Fighting restraints, Swearing, Spitting, Screaming/Yelling - Behavioral Condition Attitude: Other (angry) Behavior: Uncooperative, Belligerent, Agitated Orientation: Not oriented to person, place, time, and situation Mood: Angry - Evaluation Review of Systems: see chart Pertinent History/Illicit Drugs/Medications/Results: see chart - Plan Need to Continue or Terminate Violent or Chemical Restraint: continue
[2021-03-26] MEDS ORDERED: KETAMINE 500 MG/10 ML VIAL IM STA (16:45)
[2021-03-26 17:10] LABS: MUDS CUTOFF CONCENTRATIONS CUTOFF CONC BELOW:
[2021-03-26 17:11] LABS: BASOPHILS % (AUTO) 0.5 %; EOSINOPHILS # (AUTO) 0.1 10^3/uL (0.0-0.7); EOSINOPHILS % (AUTO) 2.6 %; HCT - HEMATOCRIT 34.9 % (37.0-47.0); HGB - HEMOGLOBIN 10.9 g/dL (12.0-16.0); LYMPHOCYTES # (AUTO) 1.8 10^3/uL (1.5-3.5); LYMPHOCYTES % (AUTO) 33.3 %; MEAN CORPUSCULAR HEMOGLOBIN 26.3 pg (27.0-31.0); MEAN CORPUSCULAR HGB CONC 31.2 g/dL (32.0-36.0); MEAN CORPUSCULAR VOLUME 84.1 fL (81.0-99.0); MEAN PLATELET VOLUME 8.6 fL (7.9-10.8); MONOCYTES # (AUTO) 0.7 10^3/uL (0.0-1.0); MONOCYTES % (AUTO) 12.2 %; NEUTROPHILS # (AUTO) 2.8 10^3/uL (1.5-6.6); PLT - PLATELET COUNT 359 10^3/uL (130-450); RED BLOOD COUNT 4.15 10^6/uL (4.20-5.40); RED CELL DISTRIBUTION WIDTH 13.4 % (12.0-15.0); WHITE BLOOD COUNT 5.5 x10^3/uL (4.8-10.8)
[2021-03-26 17:14] LABS: GLUCOSE, URINE (UA) NEGATIVE (NEGATIVE); KETONES,URINE (UA) 15 mg/dL (NEGATIVE); LEUKOCYTE ESTERASE, URINE NEGATIVE (NEGATIVE); NITRITE,URINE NEGATIVE (NEGATIVE); OCCULT BLOOD,URINE TRACE-INTA (NEGATIVE); PROTEIN,URINE NEGATIVE (NEGATIVE); UROBILINOGEN,URINE 2 E.U./dL (NORMAL)
[2021-03-26 17:22] LABS: BILIRUBIN,URINE NEGATIVE (NEGATIVE); CLARITY,URINE CLEAR (CLEAR); ICTOTEST,URINE NEGATIVE
[2021-03-26 17:23] LABS: AMPHETAMINE SCREEN,URINE NEGATIVE (NEGATIVE); BARBITURATE SCREEN,UR NEGATIVE (NEGATIVE); BENZODIAZEPINES SCREEN, URINE NEGATIVE (NEGATIVE); COCAINE SCREEN URINE NEGATIVE (NEGATIVE); METHADONE SCREEN, URINE NEGATIVE (NEGATIVE); METHAMPHETAMINES SCREEN, URINE NEGATIVE (NEGATIVE); OPIATE SCREEN, URINE NEGATIVE (NEGATIVE); OXYCODONE SCREEN, URINE NEGATIVE (NEGATIVE); PROPOXYPHENE SCREEN, URINE NEGATIVE (NEGATIVE); THC CANNABINOID SCREEN, URINE POSITIVE (NEGATIVE); TRICYCLIC ANTIDEPRESSANT,URINE NEGATIVE (NEGATIVE)
[2021-03-26 17:29] LABS: ACETAMINOPHEN < 10 ug/mL (10-30); ALBUMIN 4.1 g/dL (3.2-5.5); ALBUMIN/GLOBULIN RATIO 1.3 (1.0-2.2); ALKALINE PHOSPHATASE 73 IU/L (42-121); ALT ALANINE AMINOTRANSFERASE 27 IU/L (10-60); AST ASPARTATE AMINOTRANSFERASE 33 IU/L (10-42); BUN - BLOOD UREA NITROGEN 14 mg/dL (6-20); CARBON DIOXIDE - CO2 23 mmol/L (21-32); CHLORIDE 107 mmol/L (101-111); CREATININE 0.7 mg/dL (0.4-1.0); ETOH - ETHANOL < 5.0 mg/dL; GFR - MDRD 85 (>89); GLUCOSE 96 mg/dL (70-100); LIPASE 31 U/L (22-51); POTASSIUM 3.3 mmol/L (3.5-5.0); SALICYLATE < 6.0 mg/dL; SODIUM 141 mmol/L (135-145); TOTAL PROTEIN 7.2 g/dL (6.7-8.2)
[2021-03-26 18:18] LABS: CORONAVIRUS 229E-RESP PCR NOT DETECTED; CORONAVIRUS HKU1-RESP PCR NOT DETECTED; CORONAVIRUS NL63-RESP PCR NOT DETECTED; CORONAVIRUS OC43-RESP PCR NOT DETECTED; HUMAN METAPNEUMOVIRUS NOT DETECTED; INFLUENZA A- RESP PCR PANEL NOT DETECTED; INFLUENZA B - RESP PCR PANEL NOT DETECTED; PARAINFLUENZA VIRUS 1 NOT DETECTED; PARAINFLUENZA VIRUS 2 NOT DETECTED; RHINOVIRUS/ENTEROVIRUS NOT DETECTED; SARS-CoV-2 -RESP PCR PANEL NOT DETECTED
[2021-03-26 18:19] LABS: B. PARAPERTUSSIS- RESP PCR PAN NOT DETECTED; B. PERTUSSIS- RESP PCR PANEL NOT DETECTED; C. PNEUMONIAE- RESP PCR PANEL NOT DETECTED; M. PNEUMONIAE- RESP PCR PANEL NOT DETECTED; PARAINFLUENZA VIRUS 3 NOT DETECTED; PARAINFLUENZA VIRUS 4 NOT DETECTED; RSV- RESP PCR PANEL NOT DETECTED
[2021-03-26] MEDS ORDERED: LORazepam 2 MG/ML VIAL IM STA (19:48)
[2021-03-27 06:02] VITALS: BP 155/69
--- NOTE | 2021-05-07 06:57 | ED Physician Documentation ---
ED Addendum - Addendum Addendum: 05/07/21 06:56 Patient accepted to inpatient psychiatry. Disposition: transfer to psychiatric hospital. Impression 1. acute psychosis 2. agitation 05/07/21 06:57 05/07/21 06:57
== END 2021-03-27 09:14 ==
LOC: ED 15:50
DX: F23 Brief psychotic disorder (principal); Z78.1 Physical restraint status; Z20.822 Contact with and (suspected) exposure to COVID-19
CPT/HCPCS: 36415; 51701; 80053; 80306; 80307; 81003; 83690; 84443; 85025; 87631; 93005; 96372; 99285; G0480; J2060; 0202U; 80320; 80329; 81001; 87086

== ENCOUNTER 2021-03-27 09:18 | Outpatient (CLI) | payer MEDICARE, MEDICAID | END 2021-03-27 09:19 | disposition short-term general hospital (02) | LOC: EMS 09:18 | PROVIDERS: ATTEND Emergency Medicine | DX: F29 Unspecified psychosis not due to a substance or known physiological condition (principal) | CPT/HCPCS: A0425; A0428 ==

== ENCOUNTER 2022-04-12 04:17 | Emergency (ER) | payer MEDICARE, MEDICAID ==
[2022-04-12] MEDS ORDERED: KETAMINE 500 MG/10 ML VIAL ONE (04:33)
[2022-04-12] MEDS ORDERED: LORazepam 2 MG/ML VIAL IM STA ×2 (04:39→17:33)
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
[2022-04-12 05:19] LABS: MUDS CUTOFF CONCENTRATIONS CUTOFF CONC BELOW:
[2022-04-12 05:23] LABS: VBG BASE EXCESS -1.5 mmol/L (-2 - +2); VBG HCO3 23.5 mmol/L (23-28); VBG OXYGEN SATURATION 73.6 % (60-80); VBG PCO2 40.5 mmHg (41-51); VBG PH 7.381 (7.31-7.41); VBG PO2 41.3 mmHg (25-47); VBG TOTAL CO2 24.7 mmol/L (24-29)
[2022-04-12 05:23] LABS: BASOPHILS % (AUTO) 0.3 %; EOSINOPHILS % (AUTO) 0.2 %; LYMPHOCYTES # (AUTO) 0.9 10^3/uL (1.5-3.5); LYMPHOCYTES % (AUTO) 10.4 %; MEAN CORPUSCULAR HEMOGLOBIN 20.5 pg (27.0-31.0); MEAN CORPUSCULAR HGB CONC 29.5 g/dL (32.0-36.0); MEAN CORPUSCULAR VOLUME 69.4 fL (81.0-99.0); MEAN PLATELET VOLUME 8.2 fL (7.9-10.8); MONOCYTES # (AUTO) 0.7 10^3/uL (0.0-1.0); MONOCYTES % (AUTO) 8.3 %; NEUTROPHILS # (AUTO) 7.1 10^3/uL (1.5-6.6); NEUTROPHILS % (AUTO) 80.3 %; PLT - PLATELET COUNT 361 10^3/uL (130-450); RED BLOOD COUNT 3.17 10^6/uL (4.20-5.40); RED CELL DISTRIBUTION WIDTH 15.9 % (12.0-15.0); WHITE BLOOD COUNT 8.9 x10^3/uL (4.8-10.8)
[2022-04-12] MEDS ORDERED: KETAMINE 500 MG/10 ML VIAL IM STA ×3 (05:23→17:54)
[2022-04-12 05:29] LABS: BILIRUBIN,URINE NEGATIVE (NEGATIVE); GLUCOSE, URINE (UA) NEGATIVE (NEGATIVE); KETONES,URINE (UA) NEGATIVE (NEGATIVE); LEUKOCYTE ESTERASE, URINE NEGATIVE (NEGATIVE); NITRITE,URINE NEGATIVE (NEGATIVE); OCCULT BLOOD,URINE NEGATIVE (NEGATIVE); PROTEIN,URINE NEGATIVE (NEGATIVE); UROBILINOGEN,URINE 0.2 (NORMAL) E.U./dL (NORMAL)
[2022-04-12 05:30] LABS: CLARITY,URINE CLEAR (CLEAR)
[2022-04-12 05:34] LABS: PT - PROTHROMBIN TIME 11.6 secs (9.9-12.6)
[2022-04-12 05:38] LABS: HGB - HEMOGLOBIN 6.5 g/dL (12.0-16.0); SLIDE REVIEW? Indicated
[2022-04-12 05:40] LABS: ACETAMINOPHEN < 10 ug/mL (10-30); ALBUMIN/GLOBULIN RATIO 1.4 (1.0-2.2); ALKALINE PHOSPHATASE 80 IU/L (42-121); ALT ALANINE AMINOTRANSFERASE 18 IU/L (10-60); AST ASPARTATE AMINOTRANSFERASE 21 IU/L (10-42); BILIRUBIN,TOTAL 0.3 mg/dL (0.2-1.0); BUN - BLOOD UREA NITROGEN 21 mg/dL (6-20); CALCIUM 9.5 mg/dL (8.5-10.3); CARBON DIOXIDE - CO2 24 mmol/L (21-32); CHLORIDE 103 mmol/L (101-111); CK- CREATINE KINASE 217 IU/L (22-269); ETOH - ETHANOL < 5.0 mg/dL; GFR - MDRD 56 (>89); GLUCOSE 110 mg/dL (70-100); LIPASE 41 U/L (22-51); POTASSIUM 3.9 mmol/L (3.5-5.0); SALICYLATE < 6.0 mg/dL; SODIUM 139 mmol/L (135-145); TOTAL PROTEIN 6.8 g/dL (6.7-8.2)
[2022-04-12 05:41] LABS: AMPHETAMINE SCREEN,URINE NEGATIVE (NEGATIVE); BARBITURATE SCREEN,UR NEGATIVE (NEGATIVE); BENZODIAZEPINES SCREEN, URINE NEGATIVE (NEGATIVE); COCAINE SCREEN URINE NEGATIVE (NEGATIVE); METHADONE SCREEN, URINE NEGATIVE (NEGATIVE); METHAMPHETAMINES SCREEN, URINE NEGATIVE (NEGATIVE); OPIATE SCREEN, URINE NEGATIVE (NEGATIVE); OXYCODONE SCREEN, URINE NEGATIVE (NEGATIVE); PROPOXYPHENE SCREEN, URINE NEGATIVE (NEGATIVE); THC CANNABINOID SCREEN, URINE POSITIVE (NEGATIVE); TRICYCLIC ANTIDEPRESSANT,URINE NEGATIVE (NEGATIVE)
[2022-04-12 05:46] LABS: PLATELET ESTIMATE, MANUAL NORMAL (130-450,000) (NORMAL); PLATELET MORPHOLOGY NORMAL APPEARANCE (NORMAL); WBC MORPHOLOGY (MULTIPLE) NORMAL APPEARANCE (NORMAL)
--- OUTSIDE RECORDS SUMMARY | 2022-04-12 05:46 | EXTERNAL MEDICAL SUMMARY RPT | Continuity of Care Document ---
:1955 Author Organization [facility] Address [address] [place] [address] Phone Allergies No information. Encounters No information. Functional Status No information. Immunizations No information. Medications date description facility [id number] prednisone [facility] [place] [phone] cetirizine [facility] [place] [phone]+0000 prednisone [facility] [place] [phone]+0000 cetirizine [facility] [place] Problems No information. Procedures date description facility [id number] Visit Code Hold [facility] [place] [phone] Visit Code Hold [facility] [place] Results/Labs No information. Social History date description facility [id number] Current every day smoker [facility] [place] Vital Signs date measurement value units [id number] BMI BMI 35.07 kg/m2 [id number]+0000 height_metric height_metric 156.21 cm [id number]+0000 height_standard height_standard 61.5 in [id number]+0000 respiration_rate respiration_rate 18 /min [id number]+0000 temperature_metric temperature_metric 36.67 C [id number]+0000 temperature_standard temperature_standard 9 8 F [id number]+0000 weight_metric weight_metric 85.28 kg [id number]+0000 weight_standard weight_standard 188 lb
[2022-04-12 06:28] LABS: B. PARAPERTUSSIS- RESP PCR PAN NOT DETECTED; B. PERTUSSIS- RESP PCR PANEL NOT DETECTED; C. PNEUMONIAE- RESP PCR PANEL NOT DETECTED; CORONAVIRUS 229E-RESP PCR NOT DETECTED; CORONAVIRUS HKU1-RESP PCR NOT DETECTED; CORONAVIRUS NL63-RESP PCR NOT DETECTED; CORONAVIRUS OC43-RESP PCR NOT DETECTED; HUMAN METAPNEUMOVIRUS NOT DETECTED; INFLUENZA A- RESP PCR PANEL NOT DETECTED; INFLUENZA B - RESP PCR PANEL NOT DETECTED; M. PNEUMONIAE- RESP PCR PANEL NOT DETECTED; PARAINFLUENZA VIRUS 1 NOT DETECTED; PARAINFLUENZA VIRUS 2 NOT DETECTED; PARAINFLUENZA VIRUS 3 NOT DETECTED; PARAINFLUENZA VIRUS 4 NOT DETECTED; RHINOVIRUS/ENTEROVIRUS NOT DETECTED; RSV- RESP PCR PANEL NOT DETECTED; SARS-CoV-2 -RESP PCR PANEL NOT DETECTED
[2022-04-12] MEDS ORDERED: PANTOPRAZOLE 40 MG VIAL IVP STA (07:02)
[2022-04-12] MEDS ORDERED: diphenhydrAMINE INJ 50 MG/ML VIAL IVP STA (07:21)
[2022-04-12] MEDS ORDERED: OLANZapine 10 MG VIAL IM STA ×3 (07:21→17:33)
--- NOTE | 2022-04-12 07:32 | ED Physician Documentation ---
Face to Face for Restraints - Immediate Situation Face to Face Evaluation Date: 04/12/22 Face to Face Evaluation Time: 07:32 Restraint Situation: Locking, Restraint removed Patient's Reactions to the Intervention: Fighting restraints, Swearing, C ompliant, Screaming/Yelling - Behavioral Condition Attitude: Other (Patient psychotic) Behavior: Belligerent, Agitated Orientation: Not oriented to person, place, time, and situation Mood: Angry - Evaluation Review of Systems: Unable to assess Pertinent History/Illicit Drugs/Medications/Results: Patient known history of schizophrenia, schizoaffective disorder, previous ER evaluations for violent psychosis. - Plan Need to Continue or Terminate Violent or Chemical Restraint: Continue restraints for the time being.
[2022-04-12 08:23] LABS: % IRON SATURATION 3 % (20-50); IRON 14 ug/dL (28-170); TOTAL IRON BINDING CAPACITY 484 ug/dL (250-450); TRANSFERRIN 346 mg/dL (192-382)
--- NOTE | 2022-04-12 09:03 | CT Report ---
PROCEDURE: HEAD WO INDICATIONS: AMS TECHNIQUE: Noncontrast 4.5 mm thick angled axial sections acquired from the foramen magnum to the vertex. For r adiation dose reduction, the following was used: automated exposure control, adjustment of mA and/or kV according to patient size. COMPARISON: None. FINDINGS: Image quality: Suboptimal due to motion artifacts. CSF spaces: Basal cisterns are patent. No extra-axial fluid collections. Ventricles are normal in size and shape. Brain: No midline shift. No intracranial masses or hemorrhage. Amanda-white matter interface is norm al. Skull and face: Calvarium and visualized facial bones are intact, without suspicious lesions. Sinuses: Visualized sinuses and mastoids are clear. IMPRESSION: Limited examination due to significant motion artifacts. No definitive acute intracrania l abnormalities. Recommend repeat examination when clinically feasible. No significant discrepancy with the preliminary interpretation. Reviewed by: Olesya Ibrahim MD on 04/12/2022 9:01 AM PDT Approved by: Olesya Ibrahim MD on 04/12/2022 9:01 AM PDT Station ID: [id number]
--- NOTE | 2022-04-12 09:07 | CT Report ---
PROCEDURE: CERVICAL SPINE WO INDICATIONS: AMS, Trauma evaluation, comative with PD earlier TECHNIQUE: Noncontrast 3 mm thick sections acquired from the skull base to the T4 level. Sagittal and coronal r eformats were then constructed. For radiation dose reduction, the following was used: automated exp osure control, adjustment of mA and/or kV according to patient size. COMPARISON: None. FINDINGS: Image quality: There are motion artifacts. Bones: No fractures or dislocations. There is [id number] disc is at C4-C5, C5-C6, C6-C7 and C7-T1. Lateral facet arthropathy, most pronounced at C3-C4 on the left. Visualized superior ribs are intact. Soft tissues: Prevertebral soft tissues are normal in thickness. No paravertebral hematomas. No ap ical pneumothoraces. IMPRESSION: 1. Limited examination due to motion artifacts. 2. No acute cervical injury is identified. Repeat examination suggested if clinically indicated. No significant discrepancy with the preliminary interpretation. Reviewed by: Olesya Ibrahim MD on 04/12/2022 9:06 AM PDT Approved by: Olesya Ibrahim MD on 04/12/2022 9:06 AM PDT Station ID: [id number]
--- NOTE | 2022-04-12 09:16 | CT Report ---
PROCEDURE: CHEST W INDICATIONS: trauma CONTRAST: IV CONTRAST: Optiray 320 ml: 100 PO CONTRAST: *NO PO CONTRAST TECHNIQUE: After the administration of intravenous contrast, 1 mm axial images were acquired from the pulmonary apices through the posterior costophrenic angles. Axial 5 mm soft tissue kernel reconstructions were performed as well as 8 mm axial MIP and coronal and sagittal 5 mm reformations. For radiation dose reduction, the following was used: automated exposure control, adjustment of mA and/or kV according to patient size. COMPARISON: None. FINDINGS: Image quality: Excellent. Lungs and pleura: Dependent atelectasis at lung bases. Calcified nodules along the right hemidiaphra gm/hepatic capsule. No acute air space opacities. No pleural effusions or pneumothorax. Central and peripheral airways are patent and normal in caliber. Mediastinum: Heart size is normal. No pericardial effusion. No mediastinal or hilar adenopathy by size criteria. Thoracic aorta and central pulmonary arteries are normal in size. Esophagus is silvia l in caliber. There is a moderate-sized hiatal hernia. Bones and chest wall: No suspicious bony lesions. No vertebral body compression fractures. No axil jaime or supraclavicular adenopathy by size criteria. The thyroid is normal in size and there are no incidental findings.. Abdomen: Please see separate report for CT of abdomen and pelvis. IMPRESSION: 1. No acute traumatic injuries identified. 2. Moderate-sized hiatal hernia. No significant discrepancy with the preliminary interpretation. Reviewed by: Olesya Ibrahim MD on 04/12/2022 9:14 AM PDT Approved by: Olesya Ibrahim MD on 04/12/2022 9:14 AM PDT Station ID: [id number]
--- NOTE | 2022-04-12 09:21 | CT Report ---
PROCEDURE: Abdomen/Pelvis W INDICATIONS: Trauma CONTRAST: IV CONTRAST: Optiray 320 ml: 100 PO CONTRAST: *NO PO CONTRAST TECHNIQUE: After the administration of IV contrast, 5 mm thick sections acquired from the diaphragms to the symp hysis. 5 mm thick coronal and sagittal reformats were acquired. For radiation dose reduction, the f ollowing was used: automated exposure control, adjustment of mA and/or kV according to patient size. COMPARISON: CT abdomen and pelvis with contrast, 06/24/2015. FINDINGS: Image quality: Excellent. ABDOMEN: Lung bases: Lung bases are clear. Heart size is normal. Artery sized hiatal hernia. Solid organs: Liver and spleen are normal in size and enhancement. Hepatic steatosis. Gallbladder i s normal. Biliary system is non dilated. Pancreas enhances normally. No adrenal nodules. Kidneys demonstrate normal size and enhancement, without hydronephrosis. Peritoneum and bowel: Bowel loops demonstrate normal wall thickness and caliber. Moderate amount st ool in colon. No free fluid or air. Nodes and vessels: No retroperitoneal or mesenteric adenopathy by size criteria. Aorta and inferior vena cava are normal in size. Miscellaneous: No ventral hernias. PELVIS: Genitourinary: Bladder wall thickness is normal. Uterus is normal. Ovaries are not well seen. No alice e fluid in pelvis. Miscellaneous: No inguinal hernias or adenopathy. Bones: Scoliosis and degenerative changes in lower thoracic spine and lumbar spine. No suspicious [place] lesions. No vertebral body compression fractures. IMPRESSION: 1. No traumatic visceral injuries in abdomen or pelvis. 2. Hepatic steatosis. 3. Moderate sized hiatal hernia. No significant discrepancy with the preliminary interpretation. Reviewed by: Olesya Ibrahim MD on 04/12/2022 9:20 AM PDT Approved by: Olesya Ibrahim MD on 04/12/2022 9:20 AM PDT Station ID: [id number]
--- NOTE | 2022-04-12 11:59 | ED Physician Documentation ---
Face to Face for Restraints - Immediate Situation Face to Face Evaluation Date: 04/12/22 Face to Face Evaluation Time: 11:57 Restraint Situation: Locking, Restraint removed Patient's Reactions to the Intervention: Physically safe, Resting quietly - Behavioral Condition Attitude: Indifferent Behavior: Other (still somewhat sleepy/sedate. ) Orientation: Person Mood: Content - Evaluation Review of Systems: Unable to assess Pertinent History/Illicit Drugs/Medications/Results: Patient known history of schizophrenia, schizoaffective disorder, previous ER evaluations for violent psychosis. - Plan Need to Continue or Terminate Violent or Chemical Restraint: The patient has finished her transfusion. We will recheck the hemoglobin and basic metabolic. We will try on doing leg restraints and see level of cooperativity. She is still somewhat sleepy so not really following commands very well so concern for ability to interact well. We will under leg restraints initially and then see how she does for arms as well.
[2022-04-12 12:26] LABS: HCT - HEMATOCRIT 26.6 % (37.0-47.0); HGB - HEMOGLOBIN 8.1 g/dL (12.0-16.0)
[2022-04-12 12:39] LABS: CALCIUM 8.8 mg/dL (8.5-10.3); CREATININE 0.9 mg/dL (0.4-1.0); MAGNESIUM 2.1 mg/dL (1.7-2.8); POTASSIUM 3.8 mmol/L (3.5-5.0)
[2022-04-12] MEDS ORDERED: IRON DEXTRAN 200 MG in SODIUM CHLORIDE 0.9% 100ML 100 ML IV ONE (13:57)
[2022-04-12] MEDS ORDERED: OLANZapine ODT 5 MG TABLET TL PRN (15:46)
--- NOTE | 2022-04-12 21:19 | ED Physician Documentation ---
ED Addendum - Addendum Addendum: 04/12/22 21:14 The patient was resting on change of shift after getting IM/IV meds. She awakened and was purposeful with going to bathroom and wanting food early afternoon. She did become more agitated and loud/swearing. She had gotten restrains off (see F2F note). I ordered PRN Zyprexa oral, but the patient increased her manic symptoms prior to getting oral med. Given Lorazepam/Zyprexa IM to help with calming and her psychosis. She started to be more combative and throwing objects. this was about change of shift time, and Dr. Hurtado ordered IM meds further. See his note. FLAQUITO Campbell came to ER mid afternoon and felt the patient was not able to care for herself and is potential danger to herself as well inadvertently. [facility] will be seeking involuntary bed placement. Disposition: transfer to psychiatric facility stable. Diagnosis: schizoaffective disoder with acute psychosis iron deficiency anemia 04/12/22 21:19
--- NOTE | 2022-04-12 21:42 | ED Physician Documentation ---
ED Addendum - Addendum Addendum: 04/12/22 21:41 Patient with aggressive behavior in the emergency department at approximately 6 PM tonight. She was given Zyprexa and Ativan. She continued to be aggressive with staff, threatening, attempting to hit and kick. She was given IM ketamine. This seemed to help the patient significantly and she has been sleeping for the past several hours in the emergency department. We are still awaiting placement. Patient is on an involuntary hold from the [facility].
[2022-04-13] MEDS ORDERED: KETAMINE 500 MG/10 ML VIAL IM STA ×3 (01:12→07:07)
--- NOTE | 2022-04-13 01:16 | ED Physician Documentation ---
ED Addendum - Addendum Addendum: 04/13/22 01:14 Received sign out from Dr. Hurtado. Patient at this time is increasingly trying to get up and leave her room (naked), raising voice but saying unintelligible things, does not change her behavior with attempts to deescalate (speaking to patient in calm voice, explaining parameters needed such as staying on the bed, not yelling or raising her voice).
--- NOTE | 2022-04-13 03:07 | ED Physician Documentation ---
Face to Face for Restraints - Immediate Situation Face to Face Evaluation Date: 04/13/22 Face to Face Evaluation Time: 03:05 Restraint Situation: Chemical Patient's Reactions to the Intervention: Resting quietly (mostly resting quietly although occasionally yells out briefly and incomprehensibly) - Behavioral Condition Attitude: Indifferent Behavior: Withdrawn Orientation: Person, Place Mood: Angry - Evaluation Review of Systems: Unable to assess Pertinent History/Illicit Drugs/Medications/Results: Patient known history of schizophrenia, schizoaffective disorder, previous ER evaluations for violent psychosis. - Plan Need to Continue or Terminate Violent or Chemical Restraint: awake, alert, and demonstrates behavior and language that suggests patient is in control and no longer danger to self or others
[2022-04-13] MEDS: OLANZapine ODT 5 MG TABLET TL SCH ×2 (06:51→09:56)
[2022-04-13] MEDS: risperiDONE 1 MG TABLET PO SCH ×2 (06:54→10:10)
[2022-04-13] MEDS ORDERED: GABAPENTIN 100 MG CAPSULE PO SCH (07:00)
--- NOTE | 2022-04-13 08:18 | ED Physician Documentation ---
Face to Face for Restraints - Immediate Situation Face to Face Evaluation Date: 04/13/22 Face to Face Evaluation Time: 08:16 Restraint Situation: Chemical Patient's Reactions to the Intervention: Other (less yelling than prior to meds. ) - Behavioral Condition Attitude: Guarded Behavior: Uncooperative Orientation: Person Mood: Labile - Evaluation Review of Systems: Unable to assess Pertinent History/Illicit Drugs/Medications/Results: Patient known history of schizophrenia, schizoaffective disorder, previous ER evaluations for violent psychosis. - Plan Need to Continue or Terminate Violent or Chemical Restraint: Trying to find PO meds to work to control her psychosis.
[2022-04-13] MEDS ORDERED: QUEtiapine 25 MG TABLET PO STA ×2 (08:34→12:42)
[2022-04-13] MEDS ORDERED: OLANZapine 10 MG VIAL IM STA ×2 (08:39→14:26)
[2022-04-13] MEDS ORDERED: ZIPRASIDONE 20 MG CAPSULE PO SCH (09:00)
[2022-04-13] MEDS: GABAPENTIN 300 MG CAPSULE PO SCH ×2 (09:56→12:59)
[2022-04-13 12:27] VITALS: BP 152/55
--- NOTE | 2022-04-13 12:51 | ED Physician Documentation ---
ED Addendum - Addendum Addendum: 04/13/22 12:48The patient's morning medications hopefully seem to have become somewhat effective. I had added in her regular home medications that we have on file to start this morning. Also this morning added a dose of Seroquel to help with her psychosis. She is still needing frequent redirection and is very loud and yelling and swearing when interacted with but is often laying down quietly. Pau from [facility] is in this morning looking for placement. The patient has not had any bowel movements here. She had had a stool yesterday which tested guaiac negative. She does have the iron deficiency anemia but no signs of ongoing bleeding. She will need an iron supplement of course. She is excepting oral medications this morning and did have some breakfast this assisted by technology infusion specialist so that the patient did not throw her food. She did not make attempts at that but had been yesterday. Therefore it does seem a little bit more stable today and tolerating oral medications. We will continue with scheduled dosing and regular dosing of antipsychotic medications for her. The [facility] is looking for placement today for the patient.
[2022-04-13] MEDS ORDERED: QUEtiapine 100 MG TABLET PO STA (13:55)
[2022-04-13] MEDS ORDERED: OLANZapine ODT 5 MG TABLET TL ONE (13:56)
[2022-04-13] MEDS ORDERED: ONDANSETRON ODT 4 MG TABLET TL STA (14:06)
[2022-04-13] MEDS ORDERED: ONDANSETRON 4 MG/2 ML VIAL IM STA (14:26)
== END 2022-04-13 16:42 ==
LOC: ED 04:17
DX: F25.9 Schizoaffective disorder, unspecified (principal); F23 Brief psychotic disorder; D62 Acute posthemorrhagic anemia; Z78.1 Physical restraint status
CPT/HCPCS: 36415; 36430; 51701; 70450; 71260; 72125; 74177; 80048; 80053; 80306; 80307; 81003; 82272; 82550; 82803; 83540; 83690; 83735; 84443; 84466; 85014; 85018; 85025; 85610; 86850; 86900; 86901; 86920; 87633; 93005; 96372; 96374; 96375; 99291; A9270; G0480; J1200; J1750; J2060; P9016; Q0162; Q9967; 80320; 80329; 81001; 87086

== ENCOUNTER 2022-08-22 13:35 | Outpatient (CLI) | payer MEDICARE, MEDICAID ==
[2022-08-22 20:22] LABS: LITHIUM 0.49 mmol/L
[2022-08-22 20:23] LABS: ALBUMIN/GLOBULIN RATIO 1.3 (1.0-2.2); BILIRUBIN,TOTAL 0.6 mg/dL (0.2-1.0); CALCIUM 8.9 mg/dL (8.5-10.3); CREATININE 0.8 mg/dL (0.4-1.0); POTASSIUM 3.9 mmol/L (3.5-5.0); TOTAL PROTEIN 7.2 g/dL (6.7-8.2)
[2022-08-22 20:49] LABS: THYROID STIMULATING HORMONE 4.05 uIU/mL (0.34-5.60)
== END 2022-08-22 13:36 | disposition home or self-care (01) ==
LOC: LAB.S 13:35
PROVIDERS: ATTEND Internal Medicine
DX: Z79.899 Other long term (current) drug therapy (principal)
CPT/HCPCS: 36415; 80053; 80178; 84443

== ENCOUNTER 2023-10-26 10:30 | Outpatient (CLI) | payer MEDICARE, MEDICAID ==
[2023-10-26 15:20] LABS: BASOPHILS % (AUTO) 0.6 %; EOSINOPHILS # (AUTO) 0.1 10^3/uL (0.0-0.7); EOSINOPHILS % (AUTO) 1.2 %; HCT - HEMATOCRIT 40.9 % (37.0-47.0); LYMPHOCYTES # (AUTO) 3.6 10^3/uL (1.5-3.5); LYMPHOCYTES % (AUTO) 54.7 %; MEAN CORPUSCULAR HEMOGLOBIN 23.9 pg (27.0-31.0); MEAN CORPUSCULAR HGB CONC 29.3 g/dL (32.0-36.0); MEAN CORPUSCULAR VOLUME 81.5 fL (81.0-99.0); MEAN PLATELET VOLUME 8.8 fL (7.9-10.8); MONOCYTES # (AUTO) 0.5 10^3/uL (0.0-1.0); MONOCYTES % (AUTO) 7.9 %; NEUTROPHILS # (AUTO) 2.3 10^3/uL (1.5-6.6); NEUTROPHILS % (AUTO) 35.4 %; PLT - PLATELET COUNT 359 10^3/uL (130-450); RED BLOOD COUNT 5.02 10^6/uL (4.20-5.40); RED CELL DISTRIBUTION WIDTH 17.6 % (12.0-15.0); WHITE BLOOD COUNT 6.6 x10^3/uL (4.8-10.8)
[2023-10-26 16:07] LABS: ALBUMIN 4.4 g/dL (3.2-5.5); ALBUMIN/GLOBULIN RATIO 1.6 (1.0-2.2); ALKALINE PHOSPHATASE 85 IU/L (42-121); ALT ALANINE AMINOTRANSFERASE 11 IU/L (10-60); AST ASPARTATE AMINOTRANSFERASE 16 IU/L (10-42); BILIRUBIN,TOTAL 0.5 mg/dL (0.2-1.0); BUN - BLOOD UREA NITROGEN 17 mg/dL (6-20); CALCIUM 9.4 mg/dL (8.5-10.3); CARBON DIOXIDE - CO2 27 mmol/L (21-32); CHLORIDE 103 mmol/L (101-111); CHOL/HDL RATIO 4.1 (<4.4); CHOLESTEROL 239 mg/dL; GFR - MDRD 56 (>89); GLUCOSE 107 mg/dL (74-104); HDL CHOLESTEROL 59 mg/dL; LDL CHOLESTEROL,CALCULATED 142 mg/dL; LDL/HDL RATIO 2.4 (<4.4); POTASSIUM 3.7 mmol/L (3.5-4.5); SODIUM 137 mmol/L (135-145); TOTAL PROTEIN 7.1 g/dL (6.4-8.9); TRIGLYCERIDES 192 mg/dL (48-352); VLDL CHOLESTEROL 38 mg/dL
[2023-10-26 16:24] LABS: PROLACTIN 83.17 ng/mL
[2023-10-26 17:16] LABS: THYROID STIMULATING HORMONE 3.31 uIU/mL (0.34-5.60)
[2023-10-26 20:40] LABS: ESTIMATED AVERAGE GLUCOSE 114 mg/dL (70-100); HEMOGLOBIN A1c% 5.6 % (4.27-6.07)
== END 2023-10-26 10:31 | disposition home or self-care (01) ==
LOC: LAB.S 10:30
PROVIDERS: ATTEND Nurse Practitioner Psychiatric/Mental Health
DX: F25.0 Schizoaffective disorder, bipolar type (principal); Z79.899 Other long term (current) drug therapy
CPT/HCPCS: 36415; 80053; 80061; 83036; 83721; 84146; 84443; 85025